=== PATIENT | female | born 1950 | race Caucasian/White ===

== ENCOUNTER 2018-09-29 16:22 | Emergency (ER) | payer OTHER, SELFPAY ==
[2018-09-29 17:04] LABS: Absolute Lymphocytes (CBC) 1.5 K/uL (0.7-4.9); Basophils % 0.7 % (0-1.3); Eosinophils % 1.9 % (0-4.4); Hematocrit 39.2 % (36.0-45.0); Lymphocytes % 19.5 % (15.3-44.8); MPV 8.4 fL (7.6-11.3); Monocytes % 8.5 % (3.3-12.3); RBC Red Blood Cell Count 4.27 M/uL (3.86-4.86)
[2018-09-29 17:16] LABS: Protime INR 1.03
[2018-09-29 17:35] LABS: Barbiturates NEGATIVE (NEGATIVE); Benzodiazepines POSITIVE (NEGATIVE); Cocaine NEGATIVE (NEGATIVE); METHAMPHETAM NEGATIVE (NEGATIVE); Methadone NEGATIVE (NEGATIVE); Opiates NEGATIVE (NEGATIVE); Phencyclidine NEGATIVE (NEGATIVE); THC Cannibis POSITIVE (NEGATIVE)
[2018-09-29 17:37] LABS: ALT/SGPT 21 U/L (12-78); AST/SGOT 16 U/L (15-37); Albumin 3.4 g/dL (3.4-5.0); Alkaline Phosphatase 59 U/L (45-117); BUN Blood Urea Nitrogen 14 mg/dL (7-18); Bicarbonate 28 mmol/L (21-32); Bilirubin Direct 0.1 mg/dL (0-0.2); Bilirubin Total 0.4 mg/dL (0.2-1.0); Glucose Level 118 mg/dL (74-106); Magnesium 2.3 mg/dL (1.8-2.4); NT PRO-BNP 403 pg/mL (<125); Protein, Total 6.5 g/dL (6.4-8.2); Sodium Level 144 mmol/L (136-145)
[2018-09-29 17:42] LABS: Troponin (Emerg Dept Use Only) < 0.02 ng/mL (0.0-0.045)
[2018-09-29 17:55] LABS: Urine Blood TRACE (NEG); Urine Glucose NEGATIVE (NEG); Urine Protein 1+ (NEG); Urine Specific Gravity >1.030 (1.005-1.030)
[2018-09-29 18:14] LABS: Urine Bacteria 20-50 /HPF (<20)
[2018-09-29 18:15] LABS: Urine Culture Reflex Order REFLEXED
[2018-09-29] MEDS ORDERED: NS KCL 20MEQ 1,000 ML IV ONE (18:27)
--- NOTE | 2018-09-29 18:54 | RAD REPORT ---
EXAM DESCRIPTION: CT - Head Brain Wo Cont - 09/29/2018 6:22 pm CLINICAL HISTORY: Syncope, transient alteration of awareness COMPARISON: None. TECHNIQUE: Axial 5 mm thick images of the head were obtained without IV contrast. All CT scans are performed using dose optimization technique as appropriate and may include automated exposure control or mA/KV adjustment according to patient size. FINDINGS: No intracranial hemorrhage, mass, edema or shift of mid-line structures. No acute infarcti on changes seen. No abnormal extra-axial fluid collections. Ventricles are normal. No significant atr ophy or chronic ischemic change Mastoid air cells and visualized portions of the paranasal sinuses are clear. No acute bony findings. IMPRESSION: Negative non-contrast CT head examination for acute or significant finding.
--- NOTE | 2018-09-29 19:03 | RAD REPORT ---
EXAM DESCRIPTION: RAD - Chest Single View - 09/29/2018 5:38 pm COMPARISON: None. TECHNIQUE: AP portable chest image was obtained . FINDINGS: Lung volumes are low. No peripheral mass or consolidation. No failure or volume overload s uspected. Heart and vasculature are normal. No measurable pleural effusion and no pneumothorax. No acute bony abnormality seen. No acute aortic findings suspected. IMPRESSION: No acute cardiopulmonary process.
[2018-09-29] MEDS ORDERED: CEFTRIAXONE/SWI 1gm 1 GM/10 ML SYR ONE (19:08)
--- NOTE | 2018-09-29 20:42 | EDPHYS ---
Physician Documentation [facility] Name: Arcelia Winter Age: 68 yrs Sex: Female : 1950 Arrival Date: 09/29/2018 Time: 16:28 Bed 17 Private MD: ED Physician Kurt Cohen HPI: 09/29 17:11 This 68 yrs old Female presents to ER via EMS with complaints of Altered Mental Status. jr8 17:11 The patient presents with confusion, decreased mental status, decreased responsiveness, jr8 disorientation. Onset: The symptoms/episode began/occurred acutely, 1 week(s) ago, and became worse. Associated signs and symptoms: Pertinent positives: multiple syncopal episodes, Pertinent negatives:. Current symptoms: In the emergency department the patient's symptoms are unchanged from the initial presentation. family reports altered mental status and multiple syncopal episodes/falls for the past week. Historical: - Allergies: 16:28 Morphine; aa5 16:28 Toradol; aa5 - PMHx: 16:28 Bipolar disorder; aa5 - Immunization history:: Adult Immunizations unknown. - Social history:: Smoking status: Patient uses tobacco products, smokes one-half pack cigarettes per day. - Ebola Screening: : No symptoms or risks identified at this time. - Unable to obtain history due to: altered mental status. ROS: 17:11 Unable to obtain ROS due to altered mental status. jr8 Exam: 17:11 Eyes: Pupils equal round and reactive to light, extra-ocular motions intact. Lids and jr8 lashes normal. Conjunctiva and sclera are non-icteric and not injected. Cornea within normal limits. Periorbital areas with no swelling, redness, or edema. ENT: Nares patent. No nasal discharge, no septal abnormalities noted. Tympanic membranes are normal and external auditory canals are clear. Oropharynx with no redness, swelling, or masses, exudates, or evidence of obstruction, uvula midline. Mucous membranes moist. Neck: Trachea midline, no thyromegaly or masses palpated, and no cervical lymphadenopathy. Supple, full range of motion without nuchal rigidity, or vertebral point tenderness. No Meningismus. Chest/axilla: Normal chest wall appearance and motion. Nontender with no deformity. No lesions are appreciated. Cardiovascular: Regular rate and rhythm with a normal S1 and S2. No gallops, murmurs, or rubs. Normal PMI, no JVD. No pulse deficits. Respiratory: Lungs have equal breath sounds bilaterally, clear to auscultation and percussion. No rales, rhonchi or wheezes noted. No increased work of breathing, no retractions or nasal flaring. Abdomen/GI: Soft, non-tender, with normal bowel sounds. No distension or tympany. No guarding or rebound. No evidence of tenderness throughout. Skin: Warm, dry with normal turgor. Normal color with no rashes, no lesions, and no evidence of cellulitis. MS/ Extremity: Pulses equal, no cyanosis. Neurovascular intact. Full, normal range of motion. 17:11 Constitutional: The patient appears in no acute distress, awake, lethargic. 17:11 Head/face: Noted is no obvious of injury or deformity except contusion, that is superficial, of the left eye. 17:11 Neuro: Orientation: to person, place, Not oriented to time, situation, Mentation: responsive to voice slow to respond, sleepy. 17:11 Neuro: Cranial nerves: Speech is slurred. Vital Signs: 16:30 BP 125 / 61; Pulse 81; Resp 16 S; Temp 99.3(O); Pulse Ox 95% on R/A; Pain 0/10; aa5 17:00 BP 134 / 58; Pulse 77; Resp 18 S; Pulse Ox 96% on R/A; aa5 18:00 BP 127 / 59; Pulse 77; Resp 16 S; Pulse Ox 96% on R/A; aa5 19:00 BP 151 / 70; Pulse 79; Resp 16; Pulse Ox 95% on R/A; aa1 20:00 BP 152 / 70; Pulse 81; Resp 18; Temp 98.8; Pulse Ox 97% on R/A; Pain 0/10; aa1 21:00 BP 147 / 78; Pulse 84; Resp 16; Pulse Ox 97% on R/A; aa1 [place] Coma Score: 17:11 Eye Response: to voice(3). Verbal Response: confused(4). Motor Response: obeys jr8 commands(6). Total: 13. MDM: 16:47 Patient medically screened. jr8 19:59 Data reviewed: vital signs, nurses notes, lab test result(s), EKG, radiologic studies, jr8 CT scan, plain films. Data interpreted: Pulse oximetry: on room air is 96 %. Interpretation: normal. Counseling: I had a detailed discussion with the patient and/or guardian regarding: the historical points, exam findings, and any diagnostic results supporting the discharge/admit diagnosis, lab results, radiology results, the need for outpatient follow up, a family practitioner, to return to the emergency department if symptoms worsen or persist or if there are any questions or concerns that arise at home. Response to treatment: the patient's symptoms have markedly improved after treatment. ED course: Patient doing much better. Patient was benzo and THC positive. Also has UTI. 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 If patient can tolerate food and continue to stay awake, will send her home . 20:40 ED course: Patient was able to eat and continues to stay awake and feels much better. jr8 Calling son to come get her. 09/29 16:45 Order name: Basic Metabolic Panel; Complete Time: 17:59 09/29 16:45 Order name: CBC with Diff; Complete Time: 17:27 09/29 16:45 Order name: LFT's; Complete Time: 17:59 09/29 16:45 Order name: Magnesium; Complete Time: 17:59 09/29 16:45 Order name: NT PRO-BNP; Complete Time: 17:59 09/29 16:45 Order name: PT-INR; Complete Time: 17:27 09/29 16:45 Order name: Troponin (emerg Dept Use Only); Complete Time: 17:59 09/29 16:45 Order name: XRAY Chest (1 view); Complete Time: 19:12 09/29 16:47 Order name: UDS; Complete Time: 17:59 09/29 16:55 Order name: CT Head Brain wo Cont; Complete Time: 19:02 09/29 16:55 Order name: Urine Microscopic Only; Complete Time: 18:17 09/29 16:56 Order name: ETOH Level; Complete Time: 17:59 09/29 17:11 Order name: Urine Dipstick--Ancillary (enter results); Complete Time: 17:59 ms 09/29 18:16 Order name: Urine Culture EDMS 09/29 16:45 Order name: Cardiac monitoring; Complete Time: 16:46 [facility] 09/29 16:45 Order name: EKG - Nurse/Tech; Complete Time: 16:46 09/29 16:45 Order name: IV Saline Lock; Complete Time: 16:46 09/29 16:45 Order name: Labs collected and sent; Complete Time: 16:46 09/29 16:45 Order name: O2 Per Protocol; Complete Time: 16:46 09/29 16:45 Order name: O2 Sat Monitoring; Complete Time: 16:46 09/29 17:10 Order name: Straight Cath: VO received at 1658 ; Complete Time: 17:10 aa Administered Medications: 18:20 Drug: NS 0.9% with KCl 20 mEq/L 1000 ml Route: IV; Rate: 500 ml/hr; Site: right aa5 antecubital; 21:23 Follow up: IV Status: Completed infusion; IV Intake: 1000ml aa 18:55 Drug: Rocephin 1 grams Route: IV; Rate: calculated rate; Site: right antecubital; aa5 Disposition: 09/30 16:33 Co-signature as Attending Physician, Kurt Cohen MD I agree with the assessment and pritesh plan of care. Disposition: 09/29/18 20:41 Discharged to Home. Impression: Urinary tract infection, site not specified, Drug abuse counseling and surveillance. - Condition is Stable. - Discharge Instructions: Urinary Tract Infection, Adult. - Prescriptions for Macrobid 100 mg Oral Capsule - take 1 capsule by ORAL route every 12 hours for 7 days; 14 capsule. - Medication Reconciliation Form, Thank You Letter, Antibiotic Education, Prescription Opioid Use form. - Follow up: Private Physician; When: 2 - 3 days; Reason: Recheck today's complaints, Continuance of care, Re-evaluation by your physician. - Problem is new. - Symptoms have improved. Signatures: Dispatcher [employer] [facility] Criselda Flores RN RN aa1 Kurt Cohen MD MD cha Calderon, Audri, RN RN aa5 Liam Patel PA PA jr8 Corrections: (The following items were deleted from the chart) 09/29 21:49 20:41 09/29/2018 20:41 Discharged to Home. Impression: Urinary tract infection, site aa1 not specified; Drug abuse counseling and surveillance. Condition is Stable. Forms are Medication Reconciliation Form, Thank You Letter, Antibiotic Education, Prescription Opioid Use. Follow up: Private Physician; When: 2 - 3 days; Reason: Recheck today's complaints, Continuance of care, Re-evaluation by your physician. Problem is new. Symptoms have improved. jr8
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
--- NOTE | 2018-09-30 09:57 | EKG ---
Test Date: 2018-09-29 Test Time: 16:29:12 Broadcasting Equipment Mechanic: MATT MEASUREMENT RESULTS: Intervals: Rate: 79 NH: 162 QRSD: 84 QT: 420 QTc: 481 [place]: P: 37 NH: 162 QRS: 34 T: 77 INTERPRETIVE STATEMENTS: Normal sinus rhythm Nonspecific T wave abnormality Abnormal ECG No previous ECG available for comparison Electronically Signed On 09-30-18 09:57:03 CDT by Yung Stewart
== END 2018-09-29 21:49 | disposition home or self-care (01) ==
LOC: ER 16:22
DX: N39.0 Urinary tract infection, site not specified (principal); Z71.51 Drug abuse counseling and surveillance of drug abuser; F17.210 Nicotine dependence, cigarettes, uncomplicated; F31.9 Bipolar disorder, unspecified; Z88.5 Allergy status to narcotic agent
CPT/HCPCS: 36415; 51702; 70450; 71045; 80048; 80076; 80307; 80320; 81003; 81015; 83735; 83880; 84484; 85025; 85610; 87086; 87088; 93005; 96361; 96374; 99285; J0696